=== PATIENT | female | born 1950 | race Caucasian/White ===

== ENCOUNTER 2016-06-15 05:07 | Inpatient (IN) | payer OTHER ==
[~2016-06-15] VITALS: Ht 160 cm; Wt 78.0 kg
[2016-06-15] VITALS (9 sets, daily range): BP systolic 110–149; BP diastolic 52–91
--- NOTE | ~2016-06-15 | HC ---
[facility] [place] [address] CONSULTATION Name: CARLYN SANFORD Room #: 537-P [facility] IN ..#: [id number] Admission: 06/15/16 Attend Phys: David Serrano MD Discharge: 06/18/16 Date of : 52 Report #: [id number] THIS REPORT FOR: //name// CC: DAVID Serrano DATE OF SERVICE: 06/18/2016 HISTORY OF PRESENT ILLNESS: The patient is a 65-year-old white female with a history of a fall from a dresser approximately 4 weeks ago. She was noted that she sustained bilateral calcaneal fractures. Her right was able to be handled nonsurgically and has a Cam walker boot and is allowed weightbearing as tolerated. Left calcaneal fracture was comminuted intraarticular and she underwent open reduction and internal fixation on 06/15/2016. Left lower extremity is in a splint and she is limited to nonweightbearing. We are seeing her in rehabilitation medicine consultation. PAST MEDICAL HISTORY: Includes hypertension, COPD, dementia. She was on O2 at night. This is noted to be mild dementia, history of bipolar, history of anxiety and panic attacks, hypertension. PAST SURGICAL HISTORY: Hysterectomy. MEDICATIONS: Please see the full medication listing. SOCIAL HISTORY: Lives in an apartment alone, had been utilizing a walker or wheelchair just recently. No steps. REVIEW OF SYSTEMS: No current complaints of chest pain, shortness of breath or abdominal discomfort. PHYSICAL EXAMINATION: GENERAL: A 65-year-old white female in no obvious distress. VITAL SIGNS: Last recorded temperature 97.6, pulse 83, respirations 16, blood pressure 131/73. She is alert and pleasant. HEENT: Appeared to be benign. NEUROLOGIC: Cranial nerves grossly intact. Facies are symmetric. She has functional range of motion of both upper extremities without obvious focal weakness. DTRs are 1. In her lower extremities, she has the right Cam walker boot in place. She can wiggle the toes. No focal weakness with limited testing. Left lower extremity is splinted. She can wiggle her toes. Trace distal edema. She is able to move the proximal lower extremity, probably a strength 4- to 4/5. She is contact guard with sit to stand and ____ 8 feet contact guard with a front-wheeled walker. Nonweightbearing left lower extremity. [facility] [address] [place] [address] CONSULTATION Name: CARLYN SANFORD Room #: 537-P [facility] IN M.R.#: [id number] Admission: 06/15/16 Attend Phys: David Serrano MD Discharge: 06/18/16 Date of : 52 Report #: [id number] ASSESSMENT: A 65-year-old white female with the following problem list: 1. Left calcaneal comminuted intraarticular fracture status post open reduction internal fixation on 06/15/2016, nonweightbearing. 2. Chronic obstructive pulmonary disease. 3. History of dementia. 4. Hypertension. 5. Insomnia. PLAN: The patient does not meet medical necessity criteria for an acute [address] [place] [address] inpatient rehabilitation stay. Note that other options are being considered. Case management is involved. Thank you for asking us to assist in this patient's care. <ELECTRONICALLY SIGNED> By: Ramirez Cortez MD 06/19/16 1624 1105 1210 Ramirez Cortez MD /nt
--- NOTE | ~2016-06-15 | EKG ---
[address] [address] ELECTROCARDIOGRAM REPORT Name: HARINI SANFORDQUE Room #: 150-6 ADM IN M.R.#: [id number] Admission: 06/15/16 Attend Phys: Ovidio Serrano MD Discharge: Date of : 52 Report #: [id number] THIS REPORT FOR: //name// [facility] Test Date: 2016-06-15 Test Time: 11:43:01 Pat Name: CARLYN SANFORD Department: Room: 150 6 Gender: F Clinical Documentation Specialist: SANJU : 1950 Requested By: Ovidio Serrano Order Number: [id number] MD: Eddie Sánchez Measurements Intervals S[place]ent Rate: 70 P: 54 LA: 148 QRS: 24 QRSD: 86 T: 46 QT: 383 QTc: 414 Interpretive Statements Sinus rhythm No previous ECG available for comparison Electronically Signed On 06-15-2016 14:16:10 [employer] by Eddie Sánchez [email or web address] <ELECTRONICALLY SIGNED> By: Eddie Sánchez MD 06/15/16 1416 1143 1143 MD REINIER Romero
--- NOTE | ~2016-06-15 | H ---
[facility] [place] [address] HISTORY AND PHYSICAL Name: CARLYN SANFORD Room #: 537-P [facility] IN M.R.#: [id number] Admission: 06/15/16 Attend Phys: Ovidio Serrano MD Discharge: 06/18/16 Date of : 52 Report #: [id number] THIS REPORT FOR: //name// For History and Physical, please see office documentation/handwritten note in the patient's medical record. <ELECTRONICALLY SIGNED> By: Ovidio Serrano MD 06/28/16 0735 1504 Ovidio Serrano MD /
--- NOTE | ~2016-06-15 | O ---
[facility] [place] [address] OPERATIVE REPORT Name: CARLYN SANFORD Room #: 537-P [facility] IN M.R.#: [id number] Admission: 06/15/16 Attend Phys: David Serrano MD Discharge: Date of : 52 Report #: [id number] THIS REPORT FOR: //name// CC: DAVID Serrano DATE OF SERVICE: 06/15/2016 PREOPERATIVE DIAGNOSIS: Left calcaneal intraarticular fracture. POSTOPERATIVE DIAGNOSIS: Left calcaneal intraarticular fracture. PROCEDURE: Left calcaneus open reduction and internal fixation. SURGEON: David Serrano MD ANESTHESIA: General. ESTIMATED BLOOD LOSS: Minimal. DRAINS: No drains. TOURNIQUET TIME: 50 minutes. DESCRIPTION OF PROCEDURE: The patient was brought to the operating room where she was placed under general anesthesia. Once under adequate general anesthesia, she was placed into a lateral decubitus position on the operative table. The left lower extremity was then prepped and draped in sterile manner. The extremity was elevated, exsanguinated, tourniquet placed to 300 mmHg. A lateral incision overlying the sinus tarsi was then made. This dissected down through the soft tissue to the joint, which was then released elevating the tensor digitorum brevis and exposing the fracture. The patient had a large fracture fragment, which was impacted into the bone in the posterior facet. The posterior facet was then elevated utilizing a Joker elevator to restore the angle of gissane. Once this was able to be brought back into place, it was then subsequently fixed into place with a single 4.0 cannulated screw. The Synthes calcaneal plate was then utilized with multiple fixation points with the locking screws. Excellent fixation and alignment was achieved in this manner. Fluoroscopy was used to verify the position of the screws and the hardware to be excellent and satisfactory. The wounds were irrigated copiously and closed with 2-0 Vicryl in deep and subcutaneous tissues and leilani were used for the skin. The wound was dressed with Xeroform, 4 x 4s, and sterile soft compressive dressing with a sugar-tong and posterior splint was then placed. Tourniquet was let down at 50 minutes. Toes were pink and warm with good capillary refill. [facility] [address] [place] [address] OPERATIVE REPORT Name: SANFORDCARLYN Room #: 537-P [facility] IN M.R.#: [id number] Admission: 06/15/16 Attend Phys: David Serrano MD Discharge: Date of : 52 Report #: [id number] There were no complications from the procedure. The patient tolerated the procedure well and went to the recovery room without incident. <ELECTRONICALLY SIGNED> By: David Serrano MD 06/18/16 1007 1404 1609 David Serrano MD /nt
--- NOTE | ~2016-06-15 | HC ---
[facility] [place] [address] CONSULTATION Name: CARLYN SANFORD Room #: 537-P [facility] IN M.R.#: [id number] Admission: 06/15/16 Attend Phys: David Serrano MD Discharge: Date of : 52 Report #: [id number] THIS REPORT FOR: //name// CC: DAVID Chen MD CONSULTATION REQUESTED BY: Dr. Serrano for evaluation of hypertension, chronic obstructive pulmonary disease. HISTORY OF PRESENT ILLNESS: The patient is a 65-year-old female with history of hypertension, chronic obstructive pulmonary disease and dementia, was admitted yesterday for an elective left calcaneal open reduction and internal fixation. The patient apparently fell from a dresser 4 weeks ago and sustained bilateral calcaneal fracture. She has a brace on her right calcaneum. Apparently, she was told that she might have a fracture in the calcaneum and subsequently told that she might not have one. On the left calcaneus, she did have a comminuted fracture. She was seen by Dr. Serrano and subsequently underwent left calcaneal open reduction internal fixation yesterday. The patient is seen postoperatively. The patient complains of pain at the surgical site. The patient also complains of nausea and vomiting. She did vomit while doing the examination. No abdominal pain, no chest pain, no shortness of breath. PAST MEDICAL HISTORY: Significant for hypertension, history of chronic obstructive pulmonary disease. She uses home oxygen at nighttime. She uses a nebulizer at nighttime. No history of any peptic ulcer disease, bleeding disorder, no coronary artery disease, no CVA. No history of any diabetes. She does have history of hysterectomy, cholecystectomy in the past. ALLERGIES: SHE IS ALLERGIC TO PENICILLIN, AUGMENTIN, CYCLOBENZAPRINE AND LEVOFLOXACIN. Please look at the nursing documentation for reaction. HOME MEDICATIONS: Reviewed, please look at the nursing documentation. SOCIAL HISTORY: No smoking or alcohol abuse or illicit drug abuse. FAMILY HISTORY: No history of any hypertension, coronary artery disease. REVIEW OF SYSTEMS: CONSTITUTIONAL: No change in her weight. No fever or chills. EYES: No change in vision. THROAT: Denies any sore throat. CARDIOVASCULAR: No chest pain, dizziness, palpitations. RESPIRATORY: No cough, expectoration. GASTROINTESTINAL: Complains severe nausea and vomiting. No abdominal pain. GENITOURINARY: No dysuria, hematuria. NEUROLOGIC: Denies any focal numbness or weakness of the extremities. [facility] [address] [place] [address] CONSULTATION Name: CARLYN SANFORD Room #: 537-P [facility] IN [facility]#: [id number] Admission: 06/15/16 Attend Phys: David Serrano MD Discharge: Date of : 52 Report #: [id number] PSYCHIATRIC: No anxiety or depression. A 12-point review of system is negative other than the positive and negative dictated in the history of present illness and the review of system. PHYSICAL EXAMINATION: VITAL SIGNS: Blood pressure 102/58, heart rate of 97 per minute, afebrile. GENERAL: The patient is awake and alert, not in acute respiratory distress. EYES: Pupils equal, reactive to light, nonicteric. Conjunctivae. THROAT: She has a mildly dry oral mucosa. NECK: Supple, no JVD, no bruit, no lymphadenopathy. CARDIOVASCULAR SYSTEM: S1, S2. No S3. CHEST: Bilateral air entry present. Clear on auscultation. ABDOMEN: Soft, bowel sounds present, no mass, no organomegaly, no tenderness. EXTREMITIES: Periphery, right leg is in a brace. Left leg dressing noted. NEUROLOGIC: Power is good in 5/5 in upper extremity, did not test on the lower extremity. LABORATORY DATA: Reviewed. Hemoglobin is 12.1 today. BUN and creatinine are and 0.8, yesterday, potassium is 3.8, ALT is 80, alkaline phosphatase 128. EKG showed sinus rhythm. ASSESSMENT: 1. Hypertension. The patient will be continued on losartan, we will monitor closely. 2. Chronic obstructive pulmonary disease. The patient will be placed on DuoNebs, also continue with oxygen at nighttime. 3. Status post calcaneal fracture open reduction and internal fixation, postop as per Orthopedic Surgery, start on Lovenox for DVT prophylaxis if okay with surgery. 4. Severe nausea, vomiting, orders Zofran p.r.n. and also Protonix. 5. History of dementia. The patient will be continued on present medication. 6. Treatment plan has been explained to the patient and the nursing staff in detail. <ELECTRONICALLY SIGNED> By: Teodoro Chen MD 06/16/16 1254 1109 1132 Teodoro Chen MD /nt
[~2016-06-15 05:07] MED LIST: AMBIEN 5 MG TABL5 M1 PO; AMITRIPTYLINE H25 M2 PO; ARICEPT 5 MG TAB5 MG PO; CALCIUM 500 +1 EAC5 PO; CLONAZEPAM 1 MG1 M1 PO; COZAAR 50 MG TA50 M2 PO; DUONEB 2.5-0.5 M3 ML INH; FLONASE 0.05%50 MCG NASAL; FOLIC ACID1 MG PO; HYDROXYZINE HCL25 M1 PO; IBUPROFEN 200200 M1 PO; KLOR-CON 1010 MEQ PO; LIDODERM 5%1 PATC1 TRANSDERM; MAGNESIUM OXID400 MG PO; NORCO 10-325 T1 EACH PO; PROAIR HFA8.5 GM INH; SYMBICORT160 MCG/4. INH; TRAMADOL 50 MG50 MG PO; VITAMIN D-32000 UNIT PO; ZANTAC 150MG T150 MG PO; ZYRTEC10 M5 PO
[2016-06-15 11:54] LABS: CALCIUM 9.1 mg/dL (8.5-10.1); CREATININE 0.8 mg/dL (0.6-1.3); POTASSIUM 4.2 mmol/L (3.5-5.1)
[2016-06-15 12:00] LABS: ALBUMIN 3.6 g/dL (3.4-5.0); TOTAL BILIRUBIN 0.5 mg/dL (<0.1-1.0); TOTAL PROTEIN 6.5 g/dL (6.4-8.2)
[2016-06-16] VITALS: BP 112/64
[2016-06-16 04:10] VITALS: BP 119/68
[2016-06-16 04:25] VITALS: BP 128/82
[2016-06-16 06:16] LABS: HEMATOCRIT 34.9 % (37.0-47.0); HEMOGLOBIN 12.1 gm/dL (12.0-15.0)
[2016-06-16 07:53] LABS: POTASSIUM 3.8 mmol/L (3.5-5.1)
[2016-06-16 07:55] VITALS: BP 102/58
[2016-06-16 17:02] VITALS: BP 156/83
[2016-06-16 20:00] VITALS: BP 155/100
[2016-06-17 04:00] VITALS: BP 125/66; BP 150/61
[2016-06-17 04:29] LABS: ABSOLUTE NEUTROPHILS 5.1 thou/uL (1.4-8.2); BASOPHILS 0.3 % (0.0-2.0); EOSINOPHILS 0.1 % (0.0-3.0); HEMATOCRIT 35.9 % (37.0-47.0); LYMPHOCYTES 13.4 % (24.0-44.0); MCH 32.2 pg (26.0-34.0); MCHC 33.6 % (28.0-37.0); MCV 95.9 fL (80.0-100.0); MONOCYTES 9.2 % (1.0-8.0); PLATELET COUNT 139 thou/uL (150-400); RBC 3.74 mil/uL (4.20-5.00); RDW 13.9 % (10.5-14.5); WBC 6.6 thou/uL (4.0-11.0)
[2016-06-17 04:30] LABS: MANUAL DIFF NO
[2016-06-17 04:40] LABS: CALCIUM 8.5 mg/dL (8.5-10.1); CREATININE 0.7 mg/dL (0.6-1.3); POTASSIUM 3.4 mmol/L (3.5-5.1)
[2016-06-17 07:52] VITALS: BP 129/68
[2016-06-17 16:12] VITALS: BP 127/69
[2016-06-17 20:40] VITALS: BP 140/78
[2016-06-18 04:10] VITALS: BP 141/83
[2016-06-18 07:20] VITALS: BP 131/73
[2016-06-18 12:29] VITALS: BP 123/71
== END 2016-06-18 18:00 | DRG 505 ==
LOC: 5S 05:07 → TBA 05:07 → PRE 09:13 → 5S 15:54 → PRE 15:57 → 5S 06-18 18:00
PROVIDERS: Internal Medicine; Orthopaedic Surgery Foot and Ankle Surgery
PROC: 0QSM04Z Reposition Left Tarsal with Internal Fixation Device, Open Approach (ICD-10-PCS; principal; 2016-06-15)
DX: S92.062A Displaced intraarticular fracture of left calcaneus, initial encounter for closed fracture (principal); I10 Essential (primary) hypertension; J44.9 Chronic obstructive pulmonary disease, unspecified; F03.90 Unspecified dementia, unspecified severity, without behavioral disturbance, psychotic disturbance, mood disturbance, and anxiety; F41.9 Anxiety disorder, unspecified; F41.0 Panic disorder [episodic paroxysmal anxiety]; F31.9 Bipolar disorder, unspecified; G47.00 Insomnia, unspecified; W18.39XA Other fall on same level, initial encounter; R11.2 Nausea with vomiting, unspecified; K59.00 Constipation, unspecified; Z88.1 Allergy status to other antibiotic agents; Z90.49 Acquired absence of other specified parts of digestive tract; Z88.0 Allergy status to penicillin; Y93.89 Activity, other specified; Z90.710 Acquired absence of both cervix and uterus; Y92.89 Other specified places as the place of occurrence of the external cause; Y99.8 Other external cause status; Z88.8 Allergy status to other drugs, medicaments and biological substances; Z28.21 Immunization not carried out because of patient refusal
CPT/HCPCS: 10785; 50010; 50101; 50386; 51412; 51740; 55430; 56524; 57091; 62110; 62900; 70005